=== PATIENT | female | born 1935 | race Caucasian/White ===

== ENCOUNTER 2016-10-31 13:50 | Outpatient (CLI) | payer OTHER ==
--- NOTE | 2016-10-31 14:54 | DIAGNOSTIC IMAGING REPORT ---
PROCEDURE: DEXA BONE DENSITY STUDY CLINICAL INDICATION: OSTEOPOROSIS COMPARISON: None. FINDINGS: LUMBAR SPINE: Bone mineral density 1.005 g/cm2, T score -0.4 normal LEFT HIP: Bone mineral density 0.795 g/cm2, T score -1.2 osteopenia LEFT FEMORAL NECK: Bone mineral density 0.624 g/cm2, T score -2.0 osteopenia FRACTURE RISK CALCULATION ( when applicable): 10-year fracture risk of a major osteoporotic fracture and of a hip fracture not reported because of a prior hip or vertebral fracture and the patient is being treated for osteoporosis. (T score greater or equal to -1.0 to: NORMAL) (T score from -1.1 to -2.4: OSTEOPENIA) (T score ess than or equal to -2.5: OSTEOPOROSIS) IMPRESSION: 1. Osteopenia left hip and femoral neck.
== END 2016-11-01 15:52 | disposition home or self-care (01) ==
LOC: XR SRH 13:50
DX: M85.80 Other specified disorders of bone density and structure, unspecified site (principal)